=== PATIENT | female | born 1985 | race Caucasian/White ===

== ENCOUNTER 2019-04-22 13:47 | Emergency (ER) | payer SELFPAY ==
[~2019-04-22] VITALS: Ht 170.2 cm; Wt 58.0 kg
[2019-04-22] MEDS ORDERED: ondansetron/PF 4mg/2ml inj IM ONE (15:35)
[2019-04-22] MEDS ORDERED: morphine 4 MG/ML inj SYRINge IV ONE (15:35)
[2019-04-22 15:41] LABS: CLARITY,URINE CLOUDY (Clear); COLOR,URINE RED (Yellow)
[2019-04-22 15:42] LABS: UA COLLECTION TYPE CLN CATCH MIDSTREAM
[2019-04-22 15:51] LABS: RBC,URINE TNTC /HPF (0-2); WBC,URINE TNTC /HPF (0-4)
[2019-04-22 15:53] LABS: BACTERIA,URINE 3+ /HPF (Neg)
[2019-04-22 15:54] LABS: WBC CLUMPS,URINE MODERATE /HPF (NEGATIVE)
[2019-04-22 15:56] LABS: SQUAMOUS EPITHELIAL CELL,UR MANY /LPF (FEW)
[2019-04-22 16:27] LABS: BASOPHILS % (AUTO) 0.3 % (0-1); EOSINOPHILS % (AUTO) 0.9 % (0-6); HEMOGLOBIN 12.9 g/dl (12.0-16.0); LYMPHOCYTES # (AUTO) 0.7 X10'3 (1.1-4.8); LYMPHOCYTES % (AUTO) 18.4 % (21-51); MEAN CORPUSCULAR HEMOGLOBIN 29.9 PG (27.0-31.0); MEAN CORPUSCULAR HGB CONC 33.9 g/dL (33.0-36.5); MEAN CORPUSCULAR VOLUME 88.3 FL (78-98); MONOCYTES # (AUTO) 0.4 X10'3 (0-0.9); MONOCYTES % (AUTO) 9.6 % (2-12); NEUTROPHILS # (AUTO) 2.7 X10'3 (1.8-7.7); NEUTROPHILS % (AUTO) 70.8 % (42-75); PLATELET COUNT 165 X10'3 (140-440); RED CELL DISTRIBUTION WIDTH 14.5 % (11.5-14.5); WHITE BLOOD COUNT 3.9 X10'3 (4.5-11.0)
[2019-04-22 16:36] LABS: ALANINE AMINOTRANSFERASE 52 U/L (12-78); ALBUMIN 3.3 G/DL (3.4-5.0); ALBUMIN/GLOBULIN RATIO 0.9 (1.1-1.5); ALKALINE PHOSPHATASE 71 IU/L (46-116); ANION GAP 8 (8-16); ASPARTATE AMINO TRANSFERASE 40 U/L (10-37); BILIRUBIN,TOTAL 0.2 MG/DL (0.1-1.0); BLOOD UREA NITROGEN 12 MG/DL (7-18); CALCIUM 8.3 MG/DL (8.5-10.1); CHLORIDE 103 MMOL/L (99-107); GLUCOSE 89 MG/DL (70-104); LIPASE 284 U/L (73-393); POTASSIUM 3.2 MMOL/L (3.5-5.1); SODIUM 140 MMOL/L (135-145); TOTAL CARBON DIOXIDE 28.9 MMOL/L (24-32); TOTAL PROTEIN 7.1 G/DL (6.4-8.2); eGFR 83 ML/MIN
[2019-04-22] MEDS ORDERED: morphine 4 MG/ML inj SYRINge IM ONE (16:50)
[2019-04-22] MEDS ORDERED: AMOX-419 PO (17:42)
--- NOTE | 2019-04-22 18:31 | NUR ---
Notified pt that there is no securing device to her nephrostomy tube. The pt stated that she does not secure it or tape it down due to discomfort and that she does not want a securing device applied.
[2019-04-22] MEDS ORDERED: NO HOME MEDS (18:45)
[2019-04-22 19:44] VITALS: BP 100/57
== END 2019-04-22 20:07 | disposition home or self-care (01) ==
LOC: ER 13:49
DX: E87.6 Hypokalemia (principal); N39.0 Urinary tract infection, site not specified; N20.0 Calculus of kidney; R19.7 Diarrhea, unspecified; R11.2 Nausea with vomiting, unspecified; R31.9 Hematuria, unspecified; F15.90 Other stimulant use, unspecified, uncomplicated; Z98.890 Other specified postprocedural states
CPT/HCPCS: 36415; 74176; 80053; 81001; 83690; 85025; 96372; 96374; 99284; J2270; J2405